=== PATIENT | male | born 1995 | race Caucasian/White ===

== ENCOUNTER 2023-10-09 12:57 | Emergency (ER) | payer OTHER ==
--- NOTE | 2023-10-09 13:06 | ERPHSYRPT ---
- History of Present Illness Time Seen by Provider: 10/09/23 13:04 Source: patient Exam Limitations: no limitations Physician History: This is an overweight right-handed 28-year-old white male patient who is not taking any medications chronically and has no known drug allergies and presents with right shoulder pain that is sharp and radiates into his neck and also aches and throbs. Patient tripped and fell from a standing position onto his right shoulder. Patient did not hit his head and had no loss of consciousness. In fact, patient states that he got up and continued working with his right arm. However soon after, the patient's right shoulder was hurting significantly. Occurred: just prior to arrival Method of Injury: fell Quality: constant, aching, throbbing Severity of Pain-Max: moderate Severity of Pain-Current: moderate Extremities Pain Location: shoulder: right Modifying Factors: Improves With: movement Associated Symptoms: neck pain (Right lateral) Allergies/Adverse Reactions: No Known Drug Allergies Allergy (Verified 10/09/23 13:18) Travel Risk - International Travel Have you traveled outside of the country in past 3 weeks: No - Emerging Infectious Disease Are you exhibiting symptoms associated with any current EIDs: No - Review of Systems Constitutional: No Symptoms Eyes: No Symptoms Ears, Nose, & Throat: No Symptoms Respiratory: No Symptoms Cardiac: No Symptoms Abdominal/Gastrointestinal: No Symptoms Genitourinary Symptoms: No Symptoms Musculoskeletal: Neck Pain, Fall (Right shoulder), Injury Skin: No Symptoms Neurological: No Symptoms Psychological: No Symptoms Endocrine: No Symptoms Hematologic/Lymphatic: No Symptoms Immunological/Allergic: No Symptoms All Other Systems: Reviewed and Negative - Past Medical History Pertinent Past Medical History: Yes - Nursing Vital Signs Nursing Vital Signs: Initial Vital Signs Temperature 99.4 F 10/09/23 13:04 Pulse Rate 92 H 10/09/23 13:04 Blood Pressure 170/104 10/09/23 13:04 O2 Sat by Pulse Oximetry 97 10/09/23 13:04 Pain Scale Pain Intensity 9 - Physical Exam General Appearance: no apparent distress, alert, anxiety, obese Eyes, Ears, Nose, Throat Exam: normal ENT inspection, moist mucous membranes Neck Exam: normal inspection, supple, full range of motion, other (Right lateral musculature of the neck is sore to palpation. It is also sore to movement. There is no spinal midline tenderness) Cardiovascular/Respiratory Exam: chest non-tender, no respiratory distress Abdominal Exam: non-tender Back Exam: normal inspection, normal range of motion, No CVA tenderness, No vertebral tenderness Shoulder Exam: limited ROM, soft tissue tenderness, No deformity Elbow/Forearm Exam: normal inspection, non-tender, no evidence of injury, normal ROM Wrist Exam: normal inspection, non-tender, no evidence of injury, normal ROM Hand Exam: normal inspection, non-tender, no evidence of injury, normal ROM Neuro/Tendon Exam: normal sensation, normal motor functions, normal tendon functions Mental Status Exam: alert, oriented x 3, cooperative Skin Exam: normal color, warm, dry SpO2 Interpretation: normal O2 Delivery: Room Air - Course Nursing assessment & vital signs reviewed: Yes Ordered Tests: Active Orders 24 hr Category Date Time Status CERVICAL SPINE (2 OR 3 VIEW) Stat Exams 10/09/23 13:36 Completed CLAVICLE Stat Exams 10/09/23 13:36 Completed HUMERUS Stat Exams 10/09/23 13:36 Completed SHOULDER Stat Exams 10/09/23 13:36 Completed Medication Summary Discontinued Medications Generic Name Dose Route Start Last Admin Trade Name Shiraz PRN Reason Stop Dose Admin Orphenadrine Citrate 100 mg 10/09/23 13:31 10/09/23 13:36 Orphenadrine Citrate 100 Mg Er Tab PO 10/09/23 13:32 100 mg STAT ONE Administration Orphenadrine Citrate Confirm 10/09/23 13:34 Orphenadrine Citrate 100 Mg Er Tab Administered 10/09/23 13:35 Dose 100 mg PO .STK-MED ONE Oxycodone/Acetaminophen 1 tab 10/09/23 13:31 10/09/23 13:36 Oxycodone Hcl/Apap 5 Mg/325 Mg Tablet PO 10/09/23 13:32 1 tab STAT STA Administration Oxycodone/Acetaminophen Confirm 10/09/23 13:34 Oxycodone Hcl/Apap 5 Mg/325 Mg Tablet Administered 10/09/23 13:35 Dose 1 tab .ROUTE .STK-MED ONE Prednisone 20 mg 10/09/23 13:30 10/09/23 13:36 Prednisone 20 Mg Tablet PO 10/09/23 13:31 20 mg STAT ONE Administration Prednisone Confirm 10/09/23 13:35 Prednisone 20 Mg Tablet Administered 10/09/23 13:36 Dose 20 mg .ROUTE .STK-MED ONE - Progress Progress: improved, pain not gone completely, re-examined Progress Note: 10/09/23 13:36 My medical decision making and the assignment of low to moderate complexity of this patient's medical issue today is based on review of the patient's past medical history, review of the patient's medication list, reviewed patient drug allergy list, history present illness and physical findings on examination. The workup today includes x-ray of the cervical spine, right clavicle x-ray, right shoulder x-ray, right humerus x-ray. Differential diagnosis includes but is not limited to cervical spine, shoulder, clavicle and humerus fracture, dislocation/subluxation cervical spine, shoulder, clavicle and humerus on the right side, contusions of the right shoulder, right clavicle and right humerus. Cervical spine strain 10/09/23 14:13 The x-ray of the cervical spine was interpreted by the radiologist and I reviewed the impression. The impression states no acute fracture or subluxation. The x-ray of the right clavicle was interpreted by radiologist and I reviewed the impression. The impression states no acute fracture or dislocation The x-ray of the right humerus was interpreted by the radiologist and I reviewed the impression. The impression states no acute fracture or dislocation X-ray of the right shoulder was interpreted by the radiologist and I reviewed the impression. The impression states no acute fracture or dislocation. Counseled pt/family regarding: diagnosis, need for follow-up, rad results Medical Desision Making - Diagnostic Testing Diagnostic test were ordered, analyzed, and reviewed by me: Yes Radiological Interpretation: Reviewed by me, Teleradiologist Report - Risk of complications The pt has a mod risk of morbidity or mortality based on: Need for prescription drug management - Departure Departure Disposition: Home Clinical Impression: Multiple contusions Condition: Stable Critical Care Time: No Additional Instructions: Take your medications as prescribed. Ice pack to tender areas 3-4 times a day for the next 48 hours. Return to work without restriction once you have no pain. Have your primary care provider release you back to work. Prescriptions: Oxycodone HCl/Acetaminophen [Percocet 5-325 mg Tablet] 1 each PO Q8H PRN PRN #6 tablet MDD 3 PRN Reason: Moderate To Severe Pain Naproxen 500 mg [Naprosyn 500 MG] 500 mg PO BID #10 tablet Orphenadrine Citrate 100 mg [Norflex 100 MG Tablet] 100 mg PO BID #10 tab
[2023-10-09 13:18] VITALS: PULSE 92; TEMP 99.4
[2023-10-09] MEDS ORDERED: PERCOCET TABLET 5/325MG ONE (13:34)
[2023-10-09] MEDS ORDERED: Norflex 100 MG Tablet PO ONE (13:34)
[2023-10-09] MEDS ORDERED: DELTASONE 20 MG ONE (13:35)
[2023-10-09] MEDS: PERCOCET TABLET 5/325MG PO STA (13:36)
[2023-10-09] MEDS: Norflex 100 MG Tablet PO ONE (13:36)
[2023-10-09] MEDS: DELTASONE 20 MG PO ONE (13:36)
--- NOTE | 2023-10-09 13:42 | XRAY ---
Indication: Injury following fall. Comparison: None 4 view cervical spine demonstrates normal bones, articulation, and soft tissues.
--- NOTE | 2023-10-09 13:42 | XRAY ---
Indication: Injury following fall. Comparison: None 3 view right shoulder demonstrates normal bones, articulation, and soft tissues.
--- NOTE | 2023-10-09 13:43 | XRAY ---
Indication: Injury following fall. Comparison: None 2 view right clavicle demonstrates normal bones, articulation, and soft tissues.
--- NOTE | 2023-10-09 13:44 | XRAY ---
Indication: Injury following fall. Comparison: None 2 view right humerus demonstrates normal bones, articulation, and soft tissues.
[2023-10-09 14:04] VITALS: BP 152/91; O2SAT 96
== END 2023-10-09 14:54 | disposition home or self-care (01) ==
LOC: ED 12:57
DX: S40.011A Contusion of right shoulder, initial encounter (principal); T14.8XXA Other injury of unspecified body region, initial encounter; W01.0XXA Fall on same level from slipping, tripping and stumbling without subsequent striking against object, initial encounter; Y92.64 Mine or pit as the place of occurrence of the external cause; Y99.0 Civilian activity done for income or pay; Z79.891 Long term (current) use of opiate analgesic; Z79.899 Other long term (current) drug therapy
CPT/HCPCS: 72040; 73000; 73030; 73060; 99283; A9270-GY